=== PATIENT | female | born 1980 | race Caucasian/White ===

== ENCOUNTER → 2016-07-05 | Outpatient (CLI) | payer BC ==
[~2016-07-05] MED LIST: LEVO75TA PO
[2016-07-05 14:44] LABS: URINE APPEARANCE CLEAR (CLEAR); URINE BILIRUBIN NEG (NEG); URINE COLOR YELLOW; URINE NITRITE NEG (NEG); URINE SPECIFIC GRAVITY 1.009 (1.000-1.030); UROBILINOGEN NEG (NEG)
[2016-07-05 14:47] LABS: MANUAL MICROSCOPIC REQUIRED? NO; REVIEW REQ? NO
== END | disposition home or self-care (01) ==
LOC: C.LABSPEC 14:06
PROVIDERS: ATTEND Obstetrics & Gynecology
DX: O09.521 Supervision of elderly multigravida, first trimester (principal)

== ENCOUNTER → 2016-07-13 | Outpatient (CLI) | payer BC ==
[2016-07-13 16:53] LABS: BASO % 0.3 %; BASO ABS # 0.02 K/uL (0-0.2); COMPLETE YES; EOS % 0.6 %; HEMATOCRIT 36.2 % (37-47); IG% 0.1 %; LYMPH % 28.8 %; LYMPH ABS # 2.25 K/uL (1.2-3.4); MEAN CELL VOLUME 87.7 fL (80-100); MEAN CORPUSCULAR HEMOGLOBIN 30.5 pg (25-34); MEAN CORPUSCULAR HGB CONC 34.8 g/dl (32-36); MEAN PLATELET VOLUME 9.8 fL (7.4-10.4); MONO % 6.4 %; NEUT % 63.8 %; PLATELET COUNT 237 K/uL (130-400); RED BLOOD COUNT 4.13 M/uL (4.2-5.4); WHITE BLOOD COUNT 7.82 K/uL (4.8-10.8)
[2016-07-13 17:30] LABS: THYROID STIMULATING HORMONE 2.97 uIu/ml (0.300-4.500)
== END | disposition home or self-care (01) ==
LOC: C.LAB1850 15:54
PROVIDERS: ATTEND Obstetrics & Gynecology
DX: O09.521 Supervision of elderly multigravida, first trimester (principal)

== ENCOUNTER → 2016-07-13 | Outpatient (CLI) | payer BC ==
[2016-07-16 00:25] LABS: CHLAMYDIA TRACH RNA*** NOT DETECTED (NOT DETECTED); GC (NEIS GONORRHOEAE)RNA** NOT DETECTED (NOT DETECTED)
== END | disposition home or self-care (01) ==
LOC: C.LABSPEC 17:30
PROVIDERS: ATTEND Obstetrics & Gynecology
DX: O09.521 Supervision of elderly multigravida, first trimester (principal)

== ENCOUNTER → 2016-08-10 | Outpatient (CLI) | payer BC ==
[2016-08-10 12:35] LABS: THYROID STIMULATING HORMONE 4.41 uIu/ml (0.300-4.500)
== END | disposition home or self-care (01) ==
LOC: C.LAB1850 10:58
PROVIDERS: ATTEND Internal Medicine Endocrinology, Diabetes & Metabolism
DX: E03.9 Hypothyroidism, unspecified (principal)

== ENCOUNTER → 2016-08-31 | Outpatient (CLI) | payer BC ==
[~2016-08-31] MED LIST changes: +PRENTAB26 PO; +SYN25 PO
[2016-09-01 14:14] LABS: AFP CONCENTRATION 16.6 NG/ML; AFP MULTIPLE OF MEDIAN 0.52; AFPTS GESTATIONAL AGE 15.4 WEEKS; AFPTS INSULIN DEP DIABETIC? NO; AFPTS MATERNAL WT 136 LBS; ALPHA-FETOPROTEIN RACE CAUCASIAN=W; HISTORY OF NTD NO; REPEAT SAMPLE? NO
== END | disposition home or self-care (01) ==
LOC: C.LAB1850 09:16
PROVIDERS: ATTEND Obstetrics & Gynecology
DX: O46.92 Antepartum hemorrhage, unspecified, second trimester (principal); Z3A.00 Weeks of gestation of pregnancy not specified; O09.522 Supervision of elderly multigravida, second trimester

== ENCOUNTER → 2016-09-06 | Outpatient (CLI) | payer BC ==
[2016-09-06 10:27] LABS: GTGD 50 Grams
== END | disposition home or self-care (01) ==
LOC: C.LAB1850 09:24
PROVIDERS: ATTEND Obstetrics & Gynecology
DX: O09.522 Supervision of elderly multigravida, second trimester (principal); Z3A.00 Weeks of gestation of pregnancy not specified

== ENCOUNTER → 2017-01-25 | Outpatient (CLI) | payer BC | END | disposition home or self-care (01) | LOC: C.LABSPEC 13:47 | PROVIDERS: ATTEND Obstetrics & Gynecology | DX: O09.523 Supervision of elderly multigravida, third trimester (principal) ==

== ENCOUNTER 2017-02-18 01:39 | Inpatient (IN) | payer BC ==
[~2017-02-18] VITALS: Ht 162.6 cm; Wt 70.0 kg
[2017-02-18] MEDS ORDERED: LACTATED RINGER'S 1000ML 1,000 ML IV PRN (02:13)
[2017-02-18] MEDS ORDERED: LACTATED RINGER'S 1000ML 1,000 ML IV SCH (02:13)
[2017-02-18 02:47] LABS: HEMATOCRIT 40.5 % (37-47); MEAN CELL VOLUME 90.6 fL (80-100); MEAN CORPUSCULAR HEMOGLOBIN 31.5 pg (25-34); MEAN CORPUSCULAR HGB CONC 34.8 g/dl (32-36); PLATELET COUNT 219 K/uL (130-400); RED BLOOD COUNT 4.47 M/uL (4.2-5.4); WHITE BLOOD COUNT 11.24 K/uL (4.8-10.8)
[2017-02-18] MEDS ORDERED: BENZOCAINE 20% AER SPR 82.5 GM CAN EXT PRN (03:45)
[2017-02-18] MEDS ORDERED: OXYTOCIN 30 UNITS/500ML NSS IV PRN (03:45)
[2017-02-18] MEDS ORDERED: OXYCODONE/ACETAMINOPHEN 5-325 TAB PO PRN (03:45)
[2017-02-18] MEDS ORDERED: HYDROCORTISONE ACETATE 25 MG SUPP PR PRN (03:45)
[2017-02-18] MEDS ORDERED: LANOLIN OINT EXT PRN ×2 (03:45)
[2017-02-18] MEDS ORDERED: SUPERCREAM 0.870 % 15GM JAR EXT PRN (03:45)
[2017-02-18] MEDS ORDERED: PATIENT'S ALLERGY INFO NEEDS ENTERED SCH (04:00)
[2017-02-18] MEDS ORDERED: LEVO75TA PO (04:58)
[2017-02-18 05:05] VITALS: Ht 162.6 cm; Wt 70.0 kg
--- NOTE | 2017-02-18 05:25 | DELIVERY SUMMARY ---
DATE OF OPERATION: 02/18/2017 DELIVERING SURGERY: Paz Duran DO ESTIMATED BLOOD LOSS: 300 mL. FINDINGS: Viable female . Apgars 8 and 9. Weight pending. Nuchal cord x1 easily reduced. First degree perineal laceration, hemostatic. PREDELIVERY DIAGNOSES: 1. A 36-year-old 2, para 1-0-0-1 at 39 weeks 6 days. 2. Spontaneous labor. 3. Hypothyroidism. 4. Rh negative status. POSTDELIVERY DIAGNOSES: Same. DESCRIPTION OF DELIVERY: The patient was completely dilated upon arrival. She then began to push. She spontaneously vaginally delivered a viable female from the cephalic presentation in right occiput anterior position. The head delivered. Nuchal cord x1 was noted, this was easily reduced followed by the anterior shoulder followed by posterior shoulder followed by the body. The baby was placed on mother's abdomen and a spontaneous cry was heard. Delayed cord clamping was performed, awaiting per patient's request until the cord stopped pulsating, then the cord was doubly clamped and cut. Cord blood was obtained. The placenta delivered spontaneously intact with a 3-vessel cord. Of note, the placenta had a marginal insertion of the cord with possible velamentous insertion, this was pointed out to patient. The vagina and uterus were swept of all clots and debris. Pitocin was given 10 units IM due to lack of IV access. The uterus became firm. The cervix, vagina and perineum were inspected and a first degree perineal laceration was noted, this was hemostatic with pressure, therefore, no repair was performed; this was also discussed with patient. The patient and baby tolerated the delivery well. They recovered in stable and good condition in the room. All sponge and instrument counts were correct at the conclusion of the delivery. I attest to the content of the Intraoperative Record and any orders documented therein. Any exception s are noted below.
[2017-02-18] MEDS ORDERED: OXYTOCIN INJ 10 UNITS/ML VIAL ONE (05:57)
[2017-02-18 06:15] VITALS: BP 130/80; PULSE 83; TEMP 37
[2017-02-18] MEDS: IBUPROFEN 600 MG TAB PO PRN ×2 (06:43→19:41)
[2017-02-18] MEDS: LEVOTHYROXINE 25 MCG TAB PO SCH (07:30)
[2017-02-18] MEDS: DOCUSATE SODIUM 100 MG CAP PO SCH ×2 (07:50→19:36)
[2017-02-18 11:25] VITALS: BP 117/80; PULSE 74; TEMP 36.5; O2SAT 98
[2017-02-18 15:15] VITALS: BP 116/79; PULSE 66; TEMP 36.8; O2SAT 97
[2017-02-18 19:30] VITALS: BP 114/79; PULSE 81; TEMP 36.7; O2SAT 99
[2017-02-18 23:55] VITALS: BP 112/74; PULSE 60; TEMP 36.7
[2017-02-19] MEDS: IBUPROFEN 600 MG TAB PO PRN (00:03)
[2017-02-19 04:45] VITALS: BP 126/79; PULSE 70; TEMP 36.5
[2017-02-19 06:58] LABS: HEMATOCRIT 34.5 % (37-47)
[2017-02-19] MEDS: LEVOTHYROXINE 25 MCG TAB PO SCH (07:18)
[2017-02-19 07:35] VITALS: BP 107/73; PULSE 62; TEMP 36.5
--- NOTE | 2017-02-19 08:35 | Progress Note ---
Subjective Feb 19, 2017. Subjective conversation w/ patient, physical exam, lab review Ambulation: ambulating normally Voiding: no voiding problems Diet Tolerance: Regular Diet Lochia: Small Feeding Type: Breast Feeding Pain: controlled Objective Vital Signs Date Time Temp Pulse Resp B/P (MAP) Pulse Ox O2 Delivery O2 Flow Rate FiO2 02/19/17 04:45 36.5 70 18 126/79 (95) Room Air 02/18/17 23:55 36.7 60 18 112/74 (87) Room Air 02/18/17 23:55 Room Air 02/18/17 19:30 36.7 81 20 114/79 (91) 99 Room Air 02/18/17 15:45 Room Air 02/18/17 15:15 36.8 66 16 116/79 (91) 97 Room Air 02/18/17 11:25 36.5 74 14 117/80 (92) 98 Room Air Physical Exam General Appearance: WELL-APPEARING Respiratory/Chest: lungs clear, normal breath sounds Cardiovascular: regular rate, rhythm Abdomen: non tender Fundus: Firm, Non-Tender, Relation to Umbilicus (at u) Extremities: non-tender, normal inspection, no pedal edema Laboratory Results Last 24 Hours Test 02/19/17 06:26 Hemoglobin 11.6 g/dL Hematocrit 34.5 % Assessment and Plan Post- Day#: 1 Continue Routine Care: Patient doing well. Second baby. Breast feeding going ok. Desires d/c. Instructions given.
--- NOTE | 2017-02-19 08:41 | Discharge Instructions ---
Discharge Instructions Date of Service Feb 19, 2017. Admission Reason for Admission: LABOR Discharge Discharge Diagnosis / Problem: s/p vaginal delivery Discharge Goals Goal(s): Routine recovery after delivery Medications Continue Dispensed Medications: supercream, dermaplast, tucks, lansinoh Activity Recommendations Activity Limitations: per Instructions/Follow-up section . Instructions / Follow-Up Instructions / Follow-Up ACTIVITY RECOMMENDATIONS: * Gradual return to full activity over the next 2-3 weeks. * No lifting - nothing heavier than baby over the next 2-3 weeks. * Do not engage in vigorous exercise, sexual activity or sports until cleared by your physician. * Do not drive or operate any motorized equipment until cleared by your physician. * You may shower/bathe daily. MEDICATIONS: For discomfort or pain, you may use Acetaminophen (Tylenol), Ibuprofen (Advil), or Naproxen (Aleve) following the package directions. For constipation you may use Colace following the package directions. BREAST CARE: If you are not breast feeding: * Wear a supportive bra 24 hours a day for one to two weeks. * Avoid stimulating your breasts and nipples as much as possible during the first few weeks after delivery. * When taking a shower, have the warm water hit your back, not breasts. * When your breasts feel full, apply ice packs. Usually three to four times a day helps ease the discomfort. * Take a mild pain medication (Tylenol / Motrin) when you are uncomfortable. If breast feeding: * Use breast milk to lubricate nipples. Lansinoh cream may be used for sore nipples. You do not need to remove cream prior to breast feeding. If using a different brand of cream, check the label for directions regarding removal of cream prior to nursing. * Wear a supportive bra. * If having problems with breasts or breast feeding, call a career consultant or your health care provider. EPISIOTOMY CARE: After delivery, if you have an episiotomy (stitches), the following steps will ease discomfort and aid healing. * For the first 24 hours after delivery, place ice packs next to your episiotomy to help reduce swelling. * After the first 24 hour-period, sitz baths, either portable or in the tub, are suggested. A shower with a shower arm sprayed over the episiotomy may be comforting. * Delisa care should be done after each voiding and bowel movement. Squirt warm water from a plastic bottle over the perineum (region of the body between the anus and urinary opening) and pat dry. * Use Dermoplast to ease discomfort. Shake container. [place] directly over the episiotomy. Place a Tucks on a clean sanitary pad next to your episiotomy. SPECIAL CARE INSTRUCTIONS: When you are discharged from the hospital, it is important for you to follow the instructions listed below: * During the first week at home, you should be able to care for yourself and your baby. In addition, the usual light household activities are encouraged. * Limit your activities to the way you feel. Do not try to clean the house or move furniture. Be sensible. * If you actively engage in sports and have done so up until the time of your delivery, you may resume these activities as soon as you feel able. This may take up to one month or even longer. Use good judgment. * Continue to take your vitamins for at least six weeks after the of your baby. * Your diet need not be limited unless you were on a special diet before your delivery. Breast-feeding mothers need around 2500 calories per day and at least 64-80 ounces of fluid per day (8 to 10 glasses). * You should eat foods from the four major food groups. Crash diets or fad diets are to be avoided. Eating lean meats, fresh fruits and vegetables, low-fat dairy products, high fiber foods and a regular exercise program, will help you get back to your pre- weight without putting your health at risk. * Constipation is sometimes a problem after delivery. Take a mild laxative as needed. If breast feeding, Milk of Magnesia is acceptable to use. You may use a suppository or Fleets enema if no episiotomy. * A daily shower or tub bath is suggested. Be sure to thoroughly and gently dry the perineum. * A bloody vaginal discharge will usually continue until around four weeks post . A small amount of bleeding may continue for as long as six weeks. Vaginal discharge changes from the bright red bleeding after delivery to pink then brownish and finally yellowish-pink before becoming white and disappearing. * Bleeding may increase with activity. Your first period may come in 4-8 weeks. If you are breast feeding, your period may be delayed even longer. * [place] (sex) can begin whenever both you and your partner feel comfortable and do not have any form of genital infection. It is recommended that you wait at least six weeks for internal and external healing to occur. If you have questions, please talk to your health care practitioner. A condom should be used to prevent infection and . * Foreplay, gentle intercourse and lubrication is very important the first several times to prevent pain. A water-based lubricant such as K-Y jelly or Astroglide may be used. * If you have RH negative blood and your baby is RH positive, you will receive RHOGAM by injection prior to discharge. The nurse will give you a card to keep with you that has the date and place that you received RHOGAM after delivery. * During your care, you had a Rubella screen done to check for the presence of rubella antibodies in your blood. If your test was negative, you will receive a Rubella vaccine prior to discharge. This vaccine may cause a fever, soreness at the injection site and flu-like symptoms. If these symptoms persist, notify your health care practitioner. is not advised for one month after a Rubella vaccine. * Verbalizes understanding of car seat law as reviewed with patient nursing. * Car Seat hand-out given and reviewed with patient by nursing. * Shaken baby information reviewed with patient by nursing. Call you doctor if: * Heavy bleeding (saturating several pads an hour) or passing clots the size of your fist. * A fever >101 degrees F (38.3 degrees C) on two occasions four hours apart and /or chills. * Unusual pain in the pelvic or vaginal areas. * "Baby Blues" lasting longer than two weeks. If you have any questions or concerns, call your health care practitioner at . FOLLOW UP VISIT: * Please call the office at to schedule a 6 week examination. It is important you keep this appointment. It is important for you to make arrangements for either yearly or twice yearly check-ups thereafter. Current Hospital Diet Patient's current hospital diet: Regular OB Diet Discharge Diet Recommended Diet: Regular Diet Pending Studies Studies pending at discharge: no Medical Emergencies . Who to Call and When: Medical Emergencies: If at any time you feel your situation is an emergency, please call 911 immediately. . Non-Emergent Contact Non-Emergency issues call your: Intermediate Frame Tender . . "Provider Documentation" section prepared by Kellee Hansen. . VTE Core Measure Inpt VTE Proph given/why not?: Treatment not indicated
[2017-02-19] MEDS: DOCUSATE SODIUM 100 MG CAP PO SCH (09:55)
[2017-02-19 11:30] VITALS: BP_DIAS 73; PULSE 62; TEMP 36.5
[2017-02-19] MEDS ORDERED: BISACODYL 5 MG TABEC PO SCH (20:00)
== END 2017-02-19 11:45 | disposition home or self-care (01) | DRG 775 ==
LOC: C.OPB 01:39 → C.LD 01:39 → C.OPB 02:19 → C.LD 02:19 → C.OBG 07:07 → EDSTATUS 02-19 01:37
PROVIDERS: ADMIT Obstetrics & Gynecology; ATTEND Obstetrics & Gynecology
PROC: 10E0XZZ Delivery of Products of Conception, External Approach (ICD-10-PCS; principal; 2017-02-18)
DX: O69.81X0 Labor and delivery complicated by cord around neck, without compression, not applicable or unspecified (principal); O70.0 First degree perineal laceration during delivery; O99.284 Endocrine, nutritional and metabolic diseases complicating childbirth; E03.9 Hypothyroidism, unspecified; Z3A.39 39 weeks gestation of pregnancy; Z67.91 Unspecified blood type, Rh negative; Z37.0 Single live birth

== ENCOUNTER 2017-03-05 12:32 | Emergency (ER) | payer BC ==
[~2017-03-05] VITALS: Ht 162.6 cm; Wt 64.3 kg
[~2017-03-05 12:32] MED LIST changes: -PRENTAB26 PO; -SYN25 PO
[2017-03-05 12:50] VITALS: TEMP 37.3; Ht 162.6 cm; Wt 64.3 kg
[2017-03-05] MEDS ORDERED: PRENTAB26 PO (13:52)
[2017-03-05] MEDS ORDERED: SYN25 PO (13:52)
[2017-03-05] MEDS ORDERED: BUPIVACAINE 0.5 % 5 MG/1 ML MPF 30ML VIAL INFIL ONE (14:00)
--- NOTE | 2017-03-05 14:06 | EMERGENCY ROOM VISIT NOTE ---
History First contact with patient: 13:48 Chief Complaint: TOE PAIN, INJURY Stated Complaint: BIG TOE NAIL SEPERATED History of Present Illness The patient is a 36 year old female who presents to the Emergency Room with complaints of an injury to her right toe. The patient stubbed her toe on her son's foot. She states a prior injury to the toe a few months back. She thinks that the toenail is out of the nail bed. There is a moderate amount of bleeding. She denies any significant pain. She is up-to-date on all of her vaccines. Review of Systems 6 system review negative. Please see pertinent positives in the history of present illness section. Past Medical/Surgical History Medical Problems: (1) 39 weeks gestation of Social History Smoking Status: Never Smoker Current/Historical Medications Scheduled Levothyroxine Sodium (Synthroid), 25 MCG PO QAM Multivit/Min/Iron/Fol Ac/Pren ( Vitamin), 1 TAB PO QPM Physical Exam Vital Signs Date Time Temp Pulse Resp B/P (MAP) Pulse Ox O2 Delivery O2 Flow Rate FiO2 03/05/17 15:36 67 18 137/90 99 03/05/17 12:50 37.3 73 18 151/94 99 Room Air Physical Exam VITALS: Vitals are noted on the nurse's note and reviewed by myself. Vital signs stable. GENERAL: 36-year-old female, in no acute distress, nondiaphoretic, well- developed well-nourished. HEAD: Normocephalic atraumatic. MUSCULOSKELETAL: R FOOT: The right great toenail is subluxed from the nail bed. The cuticle appears intact. There is mild bleeding. No significant laceration. NEURO: Patient was alert and oriented to person place and time. Normal sensation to touch. No focal neurological deficits. Medical Decision & Procedures ER Provider Diagnostic Interpretation: I examined the patient. Verbal consent was obtained to perform the procedure. Using sterile technique the wound was cleaned with Betadine. 4 ml of Marcaine was used to perform a digital block to anesthetize the patient. The area was sterilely draped. Once the patient was numb, the nail was gently lifted from the nail bed using scissors. The nail bed itself was examined. There is mild oozing of blood. No significant lacerations were noted. The area was cleansed with Betadine and normal saline. The nail was then inserted back underneath the nail fold. It was secured down with 2 4-0 Ethilon sutures at the distal corners. The patient tolerated the procedure well. She was given a bandage. ED Course The patient was seen and examined The toe was repaired. Please see my procedure note. The patient tolerated the procedure well. Discharge instructions were reviewed, and she was discharged in good condition Medical Decision Differential diagnosis: Laceration of the nail bed, eruption of the nail, subungual hematoma This patient is a 36-year-old female that presents emergency department after an injury to the right toe. The nail was dislodged from the nail bed. The nail was removed. The nail bed was examined. There was no laceration to suture. There was mild oozing of blood. The nail was reinserted and secured down. The patient was instructed to follow-up with her primary care physician for suture removal in 14 days. Impression Primary Impression: Toe injury Departure Information Dispostion Home / Self-Care Condition GOOD Referrals No Doctor, Assigned (PCP) Patient Instructions My [facility] Additional Instructions You were seen in the emergency department today for an injury to your right big toenail. The toenail was removed. The nail bed was cleansed thoroughly. The nail was then put back in place with 2 sutures. Please keep the toe bandage for the first 24 hours. After that, it is okayed unbandaged. Please keep it clean. Wash daily with soap and water. Elevate and apply ice over the next 48 hours for pain. You may also take ibuprofen 600 mg every 8 hours as needed for pain. Suture removal in 14 days. Please watch for signs of infection such as increased redness, swelling or pain. Return to the emergency department if any of these occur.
[2017-03-05 15:36] VITALS: BP 137/90; PULSE 67; O2SAT 99
== END 2017-03-05 15:37 | disposition home or self-care (01) ==
LOC: C.EDB 12:34 → C.EDD 15:37
DX: S99.921A Unspecified injury of right foot, initial encounter (principal); W22.8XXA Striking against or struck by other objects, initial encounter

== ENCOUNTER → 2017-08-30 | Outpatient (CLI) | payer OTHER ==
[~2017-08-30] MED LIST changes: -LEVO75TA PO; +PRENTAB26 PO; +SYN25 PO
--- NOTE | 2017-09-06 14:10 | CODING QUERY NO DIAGNOSIS ---
TREATMENT RENDERED WITHOUT A DIAGNOSIS 80 To promote full compliance with coding requirements relating to patient care, physician participation is requested in all cases of center director uncertainty. Please assist us with providing a diagnosis/symptom for the test(s) below: A diagnosis/symptom was not documented on your Order. A valid diagnosis/symptom is required to bill all insurances. Please remember that we are unable to code a diagnosis of rule out, probable, possible, questionable, or suspected. DOS 08/30/17 Tests that require a diagnosis: * LAB DIAGNOSIS: Provider Signature: Date: Thank you Meghan Guerra [facility] Information Management Once completed, please kindly fax back to [phone] For questions please call [phone]
== END | disposition home or self-care (01) ==
LOC: C.LAB 09:17
PROVIDERS: ATTEND Specialist